=== PATIENT | male | born 1970 | race Caucasian/White ===

== ENCOUNTER 2020-02-07 10:39 | Outpatient (RCR) | payer OTHER, SELFPAY ==
--- NOTE | 2020-02-28 07:34 | MHC.PT.DC ---
[facility] [place] [facility] [place] [facility] [place] [facility] [address] Madhavi Mcbride [address] [phone] F: [phone] F: [phone] F: [phone] F: [phone] Physical Therapy Discharge Report Diagnosis: back pain. Date of Surgery: NA Date of Evaluation: 12/13/19 Date of Discharge: 02/28/20 Treatments to Date: 4 Cancellations to Date: No Shows to Date: 5 Discharge Status: Visit Non-compliance Discharge Summary: Pt reports intermittent numbness and tingling in his right thigh throughout the treatment session. He seems to have an extension directional preference. I educated him about avoiding recliner use. He said it is the only chair that will fit in his room. I asked if he could get rid of the chair and he said he will try. Pt reports compliance with use of towel roll, but uses recliner daily. He was not doing his exercises hourly as recommended. This was all reviewed with him. He stopped coming to his appointments and no showed the last 3 appointments. Electronically signed by: Qing Coleman DPT Please sign and return to therapist. Thank you for your referral.
== END 2020-02-28 07:35 | disposition other institution (70) ==
LOC: HO.PT 10:39
PROVIDERS: PCP Physician Assistant; Visit Provider Physician Assistant
DX: M54.5 Low back pain (principal)
CPT/HCPCS: 97110; 97112

== ENCOUNTER 2021-02-06 15:00 | Outpatient (REF) | payer OTHER, SELFPAY ==
[2021-02-06 15:17] LABS: MANUAL DIFF FLAG NO
[2021-02-06 15:56] LABS: Basophils Percent Auto 0.5 % (0-2); Eosinophils Absolute Auto 0.1 X10*3/uL (0.0-0.4); Eosinophils Percent Auto 1.5 % (0-4); Hematocrit 42.8 % (42-52); Hemoglobin 14.6 g/dl (14.0-18.0); Imm Gran Abs Auto 0.06 X10*3/uL (0.00-0.03); Imm Gran Pct Auto 0.8 % (0.0-0.4); Lymphocytes Absolute Auto 2.8 X10*3/uL (1.2-4.9); Lymphocytes Percent Auto 36.5 % (20-40); Mean Corpuscular HGB Conc 34.1 g/dl (31.0-36.0); Mean Corpuscular Volume 90.9 fL (80-98); Mean Platelet Volume 8.9 fL (9.4-12.4); Monocytes Absolute Auto 0.7 X10*3/uL (0.1-1.2); Monocytes Percent Auto 8.8 % (2-11); Neutrophils Percent Auto 51.9 % (45-73); Platelet Count 330 X10*3/uL (160-400); Red Blood Count 4.71 X10*6/uL (4.60-5.80); Red Cell Distribution Width 12.9 % (11.0-16.0); White Blood Count 7.8 X10*3/uL (4.8-10.8)
[2021-02-06 16:04] LABS: Estimated Average Glucose 97 mg/dL
[2021-02-06 16:20] LABS: Anion Gap 12 (12-20); Blood Urea Nitrogen 16 mg/dL (9-16); Calcium 9.1 mg/dL (8.4-10.2); Carbon Dioxide 25 mmol/L (22-29); Chloride 110 mmol/L (96-108); Cholesterol 245 mg/dL; Estimated Glomerular Filt Rate > 60; Glucose Random 77 mg/dL (60-115); HDL Cholesterol 44 mg/dL; LDL Cholesterol Calculated 146 mg/dl; Potassium 4.3 mmol/L (3.3-5.1); Sodium 143 mmol/L (135-145); Triglycerides 276 mg/dL
[2021-02-06 16:41] LABS: TSH reflex Free T4 2.72 uIU/mL (0.32-4.0)
== END 2021-02-06 15:01 | disposition home or self-care (01) ==
LOC: HO.LAB 15:00
PROVIDERS: PCP Physician Assistant; Visit Provider Physician Assistant
DX: Z13.1 Encounter for screening for diabetes mellitus (principal); E66.09 Other obesity due to excess calories; Z68.30 Body mass index [BMI] 30.0-30.9, adult
CPT/HCPCS: 36415; 80048; 80061; 83036; 84443; 85025

== ENCOUNTER 2022-12-04 10:46 | Outpatient (AMB) | payer OTHER, SELFPAY ==
[2022-12-04 11:00] VITALS: BP 124/88; PULSE 76; O2SAT 98; BMI 29.8
--- NOTE | 2022-12-04 11:00 | A.OFFPC_ITS ---
Vital Signs 12/04/22 11:00 Height 5 ft 11 in Weight 213 lb 8 oz BMI 29.8 BP 124/88 Blood Pressure Location Lt brachial Position Sitting Pulse 76 Pulse Source Pulse Oximeter Pulse Oximetry (%) 98 Oxygen Delivery Method Room Air Intake Visit Reasons: Discuss health concerns Allergies No Known Allergies Allergy (Verified 12/04/22 11:54) Medication List - Last Reconciled 12/04/22 by Jani Santizo PA-C acetaminophen ER 650 mg PO Q12H 30 days aripiprazole mg PO cyclobenzaprine 10 mg PO TID PRN gabapentin 600 mg PO DAILY meloxicam 15 mg PO DAILY nicotine 1 patch transdermal DAILY 30 days sertraline 100 mg PO DAILY Tobacco use date assessed: 12/04/22 Dental Screening Dental Screen Date: 12/04/22 Did you have a dental visit in the last 12 months?: No Did you have a dental problem in the last 6 months where you did not have access to dental care?: No Was dental information given to patient?: Patient has dentist HPI Discuss health concerns HPI Details Toribio is a 52 yo M here today for a f/u visit.. Pateint has a pmhx significant for chronic low back pain, Depression, Tobacco use. ? .. ? Schizophrenia ( paranoid):? Patient is seeing therapist and psychiatrist at [facility] , Taking Abilify and SSRI. Patient is going twice per month to [facility] mental health clinic. ? .. ? Current smoker: Reports cutting down somewhat, is still smoking 1/2 pack per day. He? Has nicotin patches at home. ? .. ? Lower back pain: reports he does have lower back issues for many years. ? He reports he is still having lumbar back stiffness and pain which causes him to sleep a lot. ? 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 Most recent lumbar MRI showing L5-S1 disc degeneration. No central nervous system impingement. Has gotten 2 injections in his lumbar spine from [facility] with only temporary relief. ?Has done PT in the past which only helped temporarily though? had transportation issues.?? PFSH Surgical History No pertinent past surgical history Family History Father Asthma Mother Chronic mental illness Stroke Diabetes Mental health disorder Maternal Grandfather Gastric cancer Social History Housing: House Alcohol intake: current Alcohol intake frequency: a few times a month Patient Tobacco Use Status: Current everyday Tobacco user Tobacco use type: Cigarette Cigarette Packs Per Day: 0.5 Cigarettes Per Day: 2 e-Cigarette/Vaping Use: Never Used Second Hand Smoke Exposure: Yes service: No Current occupational status: disabled Cognitive needs: No Hearing needs: No Vision needs: No Questionnaire PHQ-9 Over the last 2 weeks, how often have you been bothered by any of the following problems? 1. Little interest or pleasure in doing things: several days 2. Feeling down, depressed, or hopeless: more than half the days 3. Trouble falling or staying asleep, or sleeping too much: several days 4. Feeling tired or having little energy: several days 5. Poor appetite or overeating: not at all 6. Feeling bad about yourself - or that you are a failure or have let yourself or your family down: not at all 7. Trouble concentrating on things, such as reading the newspaper or watching television: more than half the days 8. Moving or speaking so slowly that other people could have noticed. Or the opposite - being so fidgety or restless that you have been moving around a lot more than usual: more than half the days 9. Thoughts that you would be better off or of hurting yourself in some way: not at all Total score: 9 Depression Screening Interpretation: Positive 87359 - PHQ-9 Billing: Yes Source: Developed by Drs. Lloyd Al, Binta Webb, Myles Lee and colleagues, with an educational leigh ann from [employer]. Thrive Questionnaire Date Thrive assessed: 12/04/22 I am a: Patient What is your living situation today?: I have a steady place to live Within the past 12 months, did the food you bought not last and you didn't have the money to get more?: Never true Within the past 12 months, did you worry whether your food would run out before you got money to buy more?: Never true Do you have trouble paying for medicines?: No Do you have trouble getting transportation to medical appointments?: No Do you have trouble paying your heating and electricity bill?: Yes Do you have trouble taking care of your child, family member or friend?: No Do you have trouble with day-to-day activities such as bathing, preparing meals, shopping, managing finances, etc.?: No Are you currently unemployed and looking for a job?: No Are you interested in more education?: No Currently or been in a relationship where the following occur: no concerns reported AUDIT C Alcohol Use Questionnaire (AUDIT-C) 1. How often do you have a drink containing alcohol?: Monthly or less 2. How many drinks containing alcohol do you have on a typical day when you are drinking?: 1 or 2 3. How often do you have six or more drinks on one occasion?: Never Total Score: 1 MARY-7 AMB Questionnaire MARY-7 Date MARY - 7 assessed: 12/04/22 Feeling nervous, anxious, or on edge: 2 = More than half the days Not being able to stop or control worryin = Nearly every day Worrying too much about different things: 3 = Nearly every day Trouble relaxin = Several days Being so restless that it is hard to sit still: 1 = Several days Becoming easily annoyed or irritable: 0 = Not at all Feeling afraid as if something awful might happen: 2 = More than half the days Total MARY-7 score (0-4 normal; 5-9 mild; 10-14 moderate; 15-21 severe): 12 Source: Developed by Drs. Lloyd Al, Binta Webb, Myles Lee and colleagues, with an educational leigh ann from [employer]. MARY-7 Assessment Billing MARY-7 Assessment Tool: MARY-7 Assessment 87094 Review of Systems Const Denies headache(s) Eyes Denies loss of vision ENT Denies vertigo, Denies dizziness, Denies headache(s) and Denies sore throat Card Denies chest pain, Denies leg edema and Denies lightheadedness Resp Denies cough, Denies hemoptysis and Denies wheezing GI Denies abdominal pain, Denies melena, Denies constipation, Denies diarrhea and Denies vomiting Denies dysuria, Denies urinary frequency and Denies urinary urgency Musc Denies arthralgias, Denies joint swelling, Denies numbness and Denies tingling Neuro Denies Abnormal speech present, Denies behavioral changes, Denies vertigo, Denies dizziness, Denies headache(s), Denies loss of vision, Denies memory loss, Denies numbness and Denies tingling Psych Denies anxiety, Denies behavioral changes, Denies depression, Denies memory loss and Denies panic attacks Nawaf/Lymph Denies easy bleeding and Denies easy bruising Aller/Immun Denies wheezing Physical exam (Primary Care) Vital Signs: Last Vital Signs Pulse 76 12/04/22 11:00 BP 124/88 12/04/22 11:00 Pulse Ox 98 12/04/22 11:00 Oxygen Delivery Method Room Air 12/04/22 11:00 BMI result Body Mass Index 29.8 Tobacco/Smoking Status: Tobacco use Status Tobacco use date assessed 12/04/22 12/04/22 11:01 Patient Tobacco Use Status Current everyday Tobacco 12/04/22 11:01 Tobacco use type Cigarette 12/04/22 11:01 e-Cigarette/Vaping Use Never Used 12/04/22 11:01 Are you ready to quit: Yes Relapse Prevention: weight gain after smoking is common PHQ-9: PHQ-9 Score PHQ-9: Total score 9 12/04/22 11:55 Depression Screening Interpretation: Positive Thrive Assessment: Date of Thrive Assessment Date Thrive assessed 12/04/22 12/04/22 11:39 Currently or been in a relationship where the following occur: no concerns reported Const General: healthy appearing, no acute distress, alert and awake Nutritional Appearance: well nourished Orientation/consciousness: oriented to person, oriented to place and oriented to time [facility] Ears: TM's normal bilaterally General nose exam: Normal nasal mucous membranes and turbinates present Eyes Conjunctivae: conjunctivae normal Sclerae: sclerae normal Pupils: Equal, round and reactive pupils present Neck Neck: Yes no lymphadenopathy and Yes no JVD Thyroid: Thyroid normal Carotids: no bruits Resp Effort & Inspection: normal respiratory effort and not tachypneic Auscultation: no crackles, no rales, no rhonchi and no wheezes Cardio Rate: regular rate Rhythm: regular rhythm Heart sounds: no murmurs and normal S1 and S2 GI Palpation (GI): Soft to palpation, nontender, no hepatomegaly and no splenomegaly Auscultation: normal bowel sounds Skin General skin exam: no rashes or lesions noted and dry skin Neuro General: oriented to person, oriented to place and oriented to time Cranial nerves: Yes Equal, round and reactive pupils present Speech: No Abnormal speech present Gait exam (Neuro): Normal gait present Motor exam (neuro): no tremor noted Extrem Right upper extremity: full ROM Left upper extremity: full ROM Right lower extremity: full ROM; no edema Left lower extremity: full ROM; no edema Psych Mental Status: mental status grossly normal Speech and movement: Normal speech and movement present Affect: normal affect Attitude: cooperative Thought process: Normal thought process present Assessment and Plan Assessment & Plan (1) Lumbar disc disease with radiculopathy: Code(s): M51.16 - Intervertebral disc disorders with radiculopathy, lumbar region Plan: As per HPI patient continues to have chronic lower lumbar spine pain with intermittent radiculopathy down right lower extremity. He has gotten to cortisone injections in his lumbar spine with only temporary relief. Has been using NSAIDs and muscle relaxers with only minimal relief. Has done 2 rounds of physical therapy which has not been helpful. Will refer to neurosurgeon for ev aluation on possible surgical fix of his degenerated disc. (2) Smoker: Code(s): F17.200 - Nicotine dependence, unspecified, uncomplicated Plan: He has cut down his smoking to only 2 cigarettes per day with morning coffee. Does have nicotine patches available to him . He plans on quitting smoking in the next year. (3) Schizo-affective schizophrenia: Code(s): F25.9 - Schizoaffective disorder, unspecified Plan: Patient continues to follow a mental health therapist and a psychiatrist who manages his mental health medications. He feels stable from a mental health point of view. Still suffers from time to time with anxiety and depression. (4) HLD (hyperlipidemia): Code(s): E78.5 - Hyperlipidemia, unspecified Qualifiers: Hyperlipidemia type: mixed hyperlipidemia Qualified Code(s): E78.2 - Mixed hyperlipidemia Plan: Patient's most recent fasting lipid panel showing very elevated total cholesterol and LDL. Has been working on lifestyle modifications on reducing high cholesterol foods in his diet. Will recheck fasting lipids and if LDL above 190 will consider statin therapy. (5) Colon cancer screening: Code(s): Z12.11 - Encounter for screening for malignant neoplasm of colon Plan: Patient willing to do colonoscopy (6) MDD (major depressive disorder), recurrent episode, moderate: Code(s): F33.1 - Major depressive disorder, recurrent, moderate Plan: As above patient's PHQ-9 score positive for mild depression which has been existing condition for him. Again speaks with a mental therapist and a psychiatrist on a regular basis. (7) MARY (generalized anxiety disorder): Code(s): F41.1 - Generalized anxiety disorder Plan: Patient's MARY-7 score positive for mild anxiety which has been existing condition for him. Orders: Orders Comprehensive [place]. Panel Fast Today E78.2 - Mixed hyperlipidemia Lipid Panel Today E78.2 - Mixed hyperlipidemia Prostate Specific Antigen Scr Today E78.2 - Mixed hyperlipidemia, Z12.5 - Encounter for screening for malignant neoplasm of prostate Complete Blood Count no Diff Today E78.2 - Mixed hyperlipidemia Referrals Neurosurgery Referral M51.16 - Intervertebral disc disorders with radiculopathy, lumbar region Gastroenterology Referral Z12.11 - Encounter for screening for malignant neoplasm of colon Medications: New multivitamin 1 tab PO DAILY 90 days 90 tabs 3RF E66.09 - Other obesity due to excess calories, Z68.30 - Body mass index [BMI] 30.0-30.9, adult Coding Level of Care Code Est Pt Level 4 (80574) Diagnoses Lumbar disc disease with radiculopathy M51.16 Smoker F17.200 Schizo-affective schizophrenia F25.9 HLD (hyperlipidemia) E78.2 Hyperlipidemia type: mixed hyperlipidemia Colon cancer screening Z12.11 MDD (major depressive disorder), recurrent episode, moderate F33.1 MARY (generalized anxiety disorder) F41.1 Additional Codes MARY-7 Assessment Billing - MARY-7 Assessment Tool: MARY-7 Assessment [id number] ([id number])
== END 2022-12-04 12:11 | disposition home or self-care (01) ==
PROVIDERS: PCP Physician Assistant; Visit Provider Physician Assistant
DX: M51.16 Intervertebral disc disorders with radiculopathy, lumbar region (principal); F17.210 Nicotine dependence, cigarettes, uncomplicated; F33.1 Major depressive disorder, recurrent, moderate; F25.9 Schizoaffective disorder, unspecified; E78.2 Mixed hyperlipidemia; Z12.11 Encounter for screening for malignant neoplasm of colon; F41.1 Generalized anxiety disorder
CPT/HCPCS: 99214

== ENCOUNTER 2023-01-15 09:56 | Outpatient (AMB) | payer OTHER, SELFPAY ==
--- NOTE | 2023-01-15 11:00 | HO.SPINEOV ---
Intake Intake Visit Reasons: intervertebral disc disorder Intake Note: Mr. Jerry is here today c/o low back pain. MRI done @ [facility]. [employer] Technician Required: No Allergies No Known Allergies Allergy (Verified 12/04/22 11:54) Assessment & Plan Assessment & Plan (1) Lumbar spine pain: Code(s): M54.5 - Low back pain Plan Dear colleague Thank you for referring Toribio Jerry to the office today with a chief complaint of chronic low back pain. HPI: This 52-year-old male suffer from chronic back pain for which he is on disability. He states that the pain is on the right side of his back and can radiate to the outside of his thigh. He denies radiation down his leg. The pain is constant and interferes with his daily activities and sleeping. Denies numbness or weakness. He tried physical therapy and 2 epidural steroid injections without success. PMH: Depression Social history: Smokes Medications: Zoloft, gabapentin, Abilify, meloxicam, cyclobenzaprine Allergies: NKDA Physical Exam: Pleasant male. Comes out a chair without difficulties. Flexing forward is more painful than extension. SI joint provocative test are mildly positive. There is pain on palpation on the right side of his back. No neurological deficits for motor, sensation reflexes. Gait is undisturbed. Radiological Studies: MRI done at [facility] on 09/19/2022 shows mild degenerative disc disease L5-S1 with a central disc bulge. Impression/Plan: This 52-year-old male suffer from chronic low back pain for more than 25 years with mild degenerative changes on the lumbar MRI. Explained to him that this is most likely not the cause of his back pain and he is not a surgical candidate. I would like to firm to Pain Management to assess if the pain is originating from either facet joints or the right SI joint. Thank you for allowing me to participate in your patients care. total time spent was 40 minutes in counseling ,coordination of plan, personal review of imaging, and subsequent plan Alexander Jackson MD, PhD Spine Fellowship Trained Neurosurgeon Director, [facility] Orders: Referrals Pain Management Referral M54.5 - Low back pain Coding Level of Care Code New Pt Level 3 (11993) Diagnoses Lumbar spine pain M54.5
== END 2023-01-15 11:33 | disposition home or self-care (01) ==
PROVIDERS: PCP Physician Assistant; Referring Provider Physician Assistant; Visit Provider Neurological Surgery
DX: M54.50 Low back pain, unspecified (principal)
CPT/HCPCS: 99203

== ENCOUNTER → 2023-01-15 09:56 | Outpatient (BNVA) | payer OTHER, SELFPAY | PROVIDERS: PCP Physician Assistant; Visit Provider Neurological Surgery ==

== ENCOUNTER → 2023-04-08 10:56 | Outpatient (BNVA) | payer OTHER, SELFPAY | PROVIDERS: PCP Physician Assistant; Visit Provider Physician Assistant ==

== ENCOUNTER 2023-04-28 11:13 | Outpatient (AMB) | payer OTHER, SELFPAY ==
[2023-04-28 11:17] VITALS: BP 132/88; PULSE 80; RESP 17; BMI 31.1
--- NOTE | 2023-04-28 11:17 | MHC.PC.OV ---
Vital Signs 04/28/23 11:17 Height 5 ft 11 in Weight 223 lb 4 oz BMI 31.1 BP 132/88 Blood Pressure Location Lt brachial Position Sitting Respiration 17 Pulse 80 Pulse Source Palpation Intake Visit Reasons: Annual PE Intake Note: Patient is here today for a physical. Media Professional Required: No Accompanied by: Self / Same As Patient Allergies No Known Allergies Allergy (Verified 04/28/23 11:34) Medication List - Last Reconciled 04/28/23 by Jani Santizo PA-C acetaminophen ER 650 mg PO Q12H 30 days aripiprazole mg PO bisacodyl (Dulcolax (bisacodyl)) 20 mg (4 x 5 mg) PO ONCE 1 day cyclobenzaprine 10 mg PO TID PRN gabapentin 600 mg PO DAILY meloxicam 15 mg PO DAILY multivitamin with folic acid 400 mcg (Daily-Samia (with folic acid)) tabs PO polyethylene glycol 3350 (Miralax) 238 grams PO ONCE PRN 1 day sertraline 100 mg PO DAILY Tobacco use date assessed: 04/28/23 Dental Screening Dental Screen Date: 04/28/23 Did you have a dental visit in the last 12 months?: No Did you have a dental problem in the last 6 months where you did not have access to dental care?: No Was dental information given to patient?: Patient has dentist HPI Annual PE HPI Details Toribio is a 52 yo M here today for a routine annual physical.. Pateint has a pmhx significant for chronic low back pain, Depression, Tobacco use. ? .. ? Schizophrenia ( paranoid):? Patient is seeing therapist and psychiatrist at [facility] , Taking Abilify and SSRI. Patient is going twice per month to [facility] mental health clinic. ? .. ? Current smoker: Reports cutting down somewhat, is still smoking 1-2 cigs per day. He? Has nicotin patches at home. ? .. ? Lower back pain: reports he does have lower back issues for many years. ? He reports he is still having lumbar back stiffness and pain which causes him to sleep a lot. ? 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 Most recent lumbar MRI showing L5-S1 disc degeneration. No central nervous system impingement. Has gotten 2 injections in his lumbar spine from [facility] with only temporary relief. ?Has done PT in the past which only helped temporarily though? had transportation issues.?? Colon cancer screening: has upcoming colonoscopy in 07/2023 Vaccines: Up-to-date with pneumonia vaccine, COVID vaccine, flu vaccine and tetanus vaccine. Considering shingles PFSH Surgical History No pertinent past surgical history Family History Father Asthma Mother Chronic mental illness Stroke Diabetes Mental health disorder Maternal Grandfather Gastric cancer Social History (Updated 04/28/23 @ 11:40 by Jani Santizo PA-C) Housing: House Alcohol intake: current Alcohol intake frequency: a few times a month Patient Tobacco Use Status: Current everyday Tobacco user Tobacco use type: Cigarette Cigarette Packs Per Day: 0.5 Cigarettes Per Day: 2 Years Smoked: 22 e-Cigarette/Vaping Use: Never Used Second Hand Smoke Exposure: Yes Substance Use Type: Marijuana service: No Current occupational status: disabled Cognitive needs: No Hearing needs: No Vision needs: No Questionnaire PHQ-9 Over the last 2 weeks, how often have you been bothered by any of the following problems? 1. Little interest or pleasure in doing things: more than half the days 2. Feeling down, depressed, or hopeless: several days 3. Trouble falling or staying asleep, or sleeping too much: several days 4. Feeling tired or having little energy: several days 5. Poor appetite or overeating: more than half the days 6. Feeling bad about yourself - or that you are a failure or have let yourself or your family down: more than half the days 7. Trouble concentrating on things, such as reading the newspaper or watching television: several days 8. Moving or speaking so slowly that other people could have noticed. Or the opposite - being so fidgety or restless that you have been moving around a lot more than usual: more than half the days 9. Thoughts that you would be better off or of hurting yourself in some way: several days Total score: 13 Depression Screening Interpretation: Positive Depression Screening Follow-up: Existing condition and In treatment Depression Screening Done: Yes 13395 - PHQ-9 Billing: Yes Source: Developed by Drs. Lloyd Al, Binta Webb, Myles Lee and colleagues, with an educational leigh ann from [employer]. Thrive Questionnaire Date Thrive assessed: 04/28/23 I am a: Patient What is your living situation today?: I have a steady place to live Within the past 12 months, did the food you bought not last and you didn't have the money to get more?: Never true Within the past 12 months, did you worry whether your food would run out before you got money to buy more?: Never true Do you have trouble paying for medicines?: No Do you have trouble getting transportation to medical appointments?: No Do you have trouble paying your heating and electricity bill?: No Do you have trouble taking care of your child, family member or friend?: No Do you have trouble with day-to-day activities such as bathing, preparing meals, shopping, managing finances, etc.?: No Are you currently unemployed and looking for a job?: No Are you interested in more education?: No Please select the resources that you would like help with: None Currently or been in a relationship where the following occur: no concerns reported AUDIT C Alcohol Use Questionnaire (AUDIT-C) 1. How often do you have a drink containing alcohol?: Monthly or less 2. How many drinks containing alcohol do you have on a typical day when you are drinking?: 3 or 4 3. How often do you have six or more drinks on one occasion?: Less than monthly Total Score: 3 MARY-7 AMB Questionnaire MARY-7 Date MARY - 7 assessed: 04/28/23 Feeling nervous, anxious, or on edge: 0 = Not at all Not being able to stop or control worryin = Not at all Worrying too much about different things: 0 = Not at all Trouble relaxin = Not at all Being so restless that it is hard to sit still: 0 = Not at all Becoming easily annoyed or irritable: 0 = Not at all Feeling afraid as if something awful might happen: 0 = Not at all Total MARY-7 score (0-4 normal; 5-9 mild; 10-14 moderate; 15-21 severe): 0 Source: Developed by Binta CookW. Jon, Myles Lee and colleagues, with an educational leigh ann from [employer]. MARY-7 Assessment Billing MARY-7 Assessment Tool: MARY-7 Assessment 16022 Review of Systems Const Denies body aches, Denies chills, Denies excessive sweating, Denies fatigue, Denies fever(s) and Denies headache(s) Eyes Denies blurry vision ENT Denies dysphagia, Denies vertigo, Denies dizziness, Denies headache(s), Denies hearing loss and Denies tinnitus Card Denies chest pain, Denies chest pain with activity, Denies syncope, Denies irregular heart rhythm and Denies dyspnea Resp Denies chest congestion, Denies cough, Denies hemoptysis, Denies dyspnea and Denies wheezing GI Denies abdominal pain, Denies melena, Denies hematochezia, Denies coffee ground emesis, Denies dysphagia, Denies diarrhea, Denies nausea and Denies vomiting Denies difficulty urinating, Denies dysuria, Denies urinary frequency, Denies urinary hesitancy and Denies urinary urgency Musc Denies arthralgias, Denies limited range of motion, Denies muscle cramps and Denies muscle weakness Skin/Breast Denies rash and Denies skin ulcer Neuro Denies Abnormal speech present, Denies confusion, Denies vertigo, Denies dizziness, Denies syncope, Denies headache(s), Denies memory loss and Denies seizure-like activity Psych Denies anxiety, Denies confusion, Denies depression, Denies memory loss, Denies panic attacks and Denies paranoia Endo Denies excessive sweating, Denies fatigue, Denies flushing, Denies polydipsia and Denies polyuria Aller/Immun Denies wheezing Physical exam (Primary Care) Vital Signs: Last Vital Signs Pulse 80 04/28/23 11:17 Resp 17 04/28/23 11:17 BP 132/88 04/28/23 11:17 BMI result Body Mass Index 31.1 BMI Assessment/Plan discussion: High Tobacco/Smoking Status: Tobacco use Status Tobacco use date assessed 04/28/23 04/28/23 11:18 Patient Tobacco Use Status Current everyday Tobacco 04/28/23 11:18 Tobacco use type Cigarette 04/28/23 11:18 e-Cigarette/Vaping Use Never Used 04/28/23 11:18 Are you ready to quit: No Tobacco cessation counseling provided: Yes Items discussed: Nicotine replacement and QuitWorks Relapse Prevention: discussed the importance of a supportive environment, discussed negative mood or depression after quitting, weight gain after smoking is common and discussed dietary, exercise and/or lifestyle changes Number of minutes spent counselin CPT code: 36883 - 4-10 Minutes PHQ-9: PHQ-9 Score PHQ-9: Total score 13 04/28/23 11:33 Depression Screening Interpretation: Positive Depression Screening Follow-up: Existing condition and In treatment Thrive Assessment: Date of Thrive Assessment Date Thrive assessed 04/28/23 04/28/23 11:31 Currently or been in a relationship where the following occur: no concerns reported Const General: cooperative, comfortable, no acute distress, alert and awake; No confusion Orientation/consciousness: oriented to person, oriented to place, patient oriented x3 and No confusion HENMT Head: Yes normocephalic Ears: external ears normal and TM's normal bilaterally Face and sinus: No sinus tenderness Mouth: Normal oral and palatal mucosa present and tongue normal Teeth and gingiva: dentition normal and gingiva normal Throat: Yes posterior oropharynx normal, Yes tonsils normal and Yes uvula midline Eyes Conjunctivae: conjunctivae normal Sclerae: sclerae normal Pupils: Equal, round and reactive pupils present EOM: EOMs intact bilaterally Direct Ophthalmoscopy: No no photophobia Neck Neck: Yes no lymphadenopathy, No tender and Yes no JVD Thyroid: Thyroid normal Carotids: no bruits Chest Chest palpation & inspection: no tenderness Resp Effort & Inspection: normal respiratory effort, no audible wheezes, not labored and no stridor Auscultation: no crackles, no rales, no rhonchi and no wheezes Cardio Jugular venous distension: no JVD Rate: regular rate, not bradycardic and not tachycardic Rhythm: regular rhythm Bruits: no carotid bruits Peripheral pulses: Peripheral pulses 2+ throughout GI Inspection: Yes normal to inspection, No abdominal wall ecchymosis and No visible herniation Palpation (GI): Soft to palpation, nontender, no guarding, not rigid and No hepatosplenomegaly present Auscultation: normoactive bowel sounds General: Yes no CVA tenderness Back/Spine/Pelvis Back: no CVA tenderness and No back tenderness Cervical Spine: cervical ROM normal Thoracic/Lumbar Spine: thoracic and lumbar spine normal to inspection, straight leg raise negative bilaterally, No thoraco-lumbar ROM limited and No lumbar spinal tenderness Skin Lesions: no lesions Rashes: no rashes Wounds: no wounds Neuro General: oriented to person, oriented to place, patient oriented x3, CN's II-XI intact bilaterally and No confusion Cranial nerves: Yes Equal, round and reactive pupils present and Yes Normal accommodation reflex present Cognition (Neuro): normal cognition Speech: No Abnormal speech present Gait exam (Neuro): Normal gait present Motor exam (neuro): 5/5 motor strength present throughout Extrem Right upper extremity: full ROM; no cyanosis Left upper extremity: full ROM; no cyanosis Right lower extremity: no edema Left lower extremity: no edema Psych Appearance: grossly normal Mental Status: mental status grossly normal Affect: normal affect Attitude: cooperative Thought process: Normal thought process present Office Procedures Flu Questionnaire Does the patient have a severe egg allergy?: No Does the patient have severe life threatening allergies?: No Does the patient have a fever or illness today?: No Has the patient ever had Guillain-[place] Syndrome?: No Has the patient ever had any past reaction to a flu shot?: No Immunizations flu vacc [id number] 6mos up(PF) 60 mcg(15 mcgx4)/0.5 mL IM syringe Performing Provider: Jani Santizo PA-C [facility] Administered by: RAMESH Busby on 04/28/23 11:33 Dose Route Admin Location Dispensed Lot Number Expiration Date NDC Patients Transporter 0.5 mL IM Left Deltoid 0.5 mL [id number] 10/19/23 [id number] [employer] VIS Given Date VIS Provided VIS Publication Date 04/28/23 Single Vaccine 20 Eligibility Eligibility Date Funding Source Not [facility] Eligible 04/28/23 Private Assessment and Plan Assessment & Plan (1) Annual physical exam: Code(s): Z00.00 - Encounter for general adult medical examination without abnormal findings (2) Lumbar disc disease with radiculopathy: Code(s): M51.16 - Intervertebral disc disorders with radiculopathy, lumbar region Plan: As per HPI patient continues to have chronic lower lumbar spine pain with intermittent radiculopathy down right lower extremity. He has gotten to cortisone injections in his lumbar spine with only temporary relief. Has been using NSAIDs and muscle relaxers with only minimal relief. Has done 2 rounds of physical therapy which has not been helpful. Has been seen by internet specialist in the past and has gotten injections. He is interested in perhaps getting another injection. (3) Smoker: Code(s): F17.200 - Nicotine dependence, unspecified, uncomplicated Plan: He has cut down his smoking to only 2 cigarettes per day with morning coffee. Does have nicotine patches available to him . He plans on quitting smoking this year (4) Schizo-affective schizophrenia: Code(s): F25.9 - Schizoaffective disorder, unspecified Plan: Patient continues to follow a mental health therapist and a psychiatrist who manages his mental health medications. He feels stable from a mental health point of view. Still suffers from time to time with anxiety and depression. (5) HLD (hyperlipidemia): Code(s): E78.5 - Hyperlipidemia, unspecified Qualifiers: Hyperlipidemia type: mixed hyperlipidemia Qualified Code(s): E78.2 - Mixed hyperlipidemia Plan: Patient's most recent fasting lipid panel showing very elevated total cholesterol and LDL. Has been working on lifestyle modifications on reducing high cholesterol foods in his diet. Will recheck fasting lipids and if LDL above 190 will consider statin therapy. (6) Colon cancer screening: Comment: Ti [facility]ett referred index screening colonoscopy no GI complaints, no known family history of GI cancer Discussed procedure, rare risks, need for escorted due to anesthesia Code(s): Z12.11 - Encounter for screening for malignant neoplasm of colon Plan: has upcoming appt July 2023 (7) MDD (major depressive disorder), recurrent episode, moderate: Code(s): F33.1 - Major depressive disorder, recurrent, moderate Plan: As above patient's PHQ-9 score positive for mild depression which has been existing condition for him. Again speaks with a mental therapist and a psychiatrist on a regular basis. (8) MARY (generalized anxiety disorder): Code(s): F41.1 - Generalized anxiety disorder Plan: Patient's diet he has been stable current SSRI therapy. (9) Obese: Code(s): E66.9 - Obesity, unspecified Qualifiers: Obesity type: due to excess calories Obesity classification: adult class 1 (BMI 30 - 34.9) Serious obesity comorbidity presence: without serious comorbidity Body mass index: BMI 31.0-31.9 Qualified Code(s): E66.09 - Other obesity due to excess calories; Z68.31 - Body mass index [BMI] 31.0-31.9, adult Plan: Patient does understand his BMI is over 30 will work on being more physically active and adapting to better eating habits to reduce his weight Orders: Orders Influenza [id number] Immunization Today Z23 - Encounter for immunization Medications: Changed From gabapentin 600 mg PO DAILY M54.5 - Low back pain To gabapentin 600 mg PO DAILY 90 days 90 tabs 2RF M54.5 - Low back pain Refilled cyclobenzaprine 10 mg PO TID PRN 30 caps 6RF for muscle spasm M54.5 - Low back pain meloxicam 15 mg PO DAILY 30 tabs 6RF M54.5 - Low back pain Coding Level of Care Code Est Pt Prev Care 40-64y(05896) Diagnoses Annual physical exam Z00.00 Lumbar disc disease with radiculopathy M51.16 Smoker F17.200 Schizo-affective schizophrenia F25.9 Mixed hyperlipidemia E78.2 Hyperlipidemia type: mixed hyperlipidemia Colon cancer screening Z12.11 MDD (major depressive disorder), recurrent episode, moderate F33.1 MARY (generalized anxiety disorder) F41.1 Class 1 obesity due to excess calories without serious comorbidity with body mass index (BMI) of 31.0 to 31.9 in adult E66.09; Z68.31 Obesity type: due to excess calories Obesity classification: adult class 1 (BMI 30 - 34.9) Serious obesity comorbidity presence: without serious comorbidity Body mass index: BMI 31.0-31.9 Additional Codes MARY-7 Assessment Billing - MARY-7 Assessment Tool: MARY-7 Assessment 73795 ([id number]) Vital Signs *Quality* - CPT code: 28753 - 4-10 Minutes ([id number])
== END 2023-04-28 12:02 | disposition home or self-care (01) ==
PROVIDERS: PCP Physician Assistant; Visit Provider Physician Assistant
DX: Z00.00 Encounter for general adult medical examination without abnormal findings (principal); F25.9 Schizoaffective disorder, unspecified; F33.1 Major depressive disorder, recurrent, moderate; Z23 Encounter for immunization; M51.16 Intervertebral disc disorders with radiculopathy, lumbar region; F17.210 Nicotine dependence, cigarettes, uncomplicated; E78.2 Mixed hyperlipidemia; Z12.11 Encounter for screening for malignant neoplasm of colon; F41.1 Generalized anxiety disorder; E66.09 Other obesity due to excess calories; Z68.31 Body mass index [BMI] 31.0-31.9, adult
CPT/HCPCS: 90471; 90686; 96127; 99396

== ENCOUNTER 2024-01-29 15:28 | Outpatient (AMB) | payer OTHER, SELFPAY ==
[2024-01-29 15:31] VITALS: BP 160/92; PULSE 104; O2SAT 97; BMI 29.4
--- NOTE | 2024-01-29 15:31 | MHC.PC.OV ---
Vital Signs 01/29/24 15:31 Height 5 ft 11 in Weight 211 lb BMI 29.4 BP 160/92 H Blood Pressure Location Lt brachial Position Sitting Pulse 104 H Pulse Source Pulse Oximeter Pulse Oximetry (%) 97 Oxygen Delivery Method Room Air Intake Visit Reasons: f/u MDD/ back issue/ smoking cessation Outside Parts Sales Required: No Accompanied by: Self / Same As Patient Allergies No Known Allergies Allergy (Verified 01/29/24 15:45) Medication List - Last Reconciled 01/29/24 by Jani Santizo PA-C acetaminophen ER 650 mg PO Q12H 30 days aripiprazole 30 mg PO DAILY bisacodyl (Dulcolax (bisacodyl)) 20 mg (4 x 5 mg) PO ONCE 1 day cyclobenzaprine 10 mg PO TID PRN gabapentin 600 mg PO DAILY 90 days meloxicam 15 mg PO DAILY multivitamin with folic acid 400 mcg (Daily-Samia (with folic acid)) 1 tab PO DAILY polyethylene glycol 3350 (Miralax) 238 grams PO ONCE PRN 1 day sertraline 100 mg PO DAILY Tobacco use date assessed: 04/28/23 Dental Screening Dental Screen Date: 04/28/23 HPI f/u MDD/ back issue/ smoking cessation HPI Details Toribio is a 53 yo M here today for a follow-up visit. Pateint has a pmhx significant for chronic low back pain, Depression, schizophrenia, Tobacco use. ? .. ? Schizophrenia ( paranoid):? Patient is seeing therapist and psychiatrist at [facility] , Taking Abilify and SSRI. Patient is going twice per month to [facility] mental health clinic. ? .. ? Current smoker: Reports cutting down on cigarette smoking, is still smoking 1-2 cigs per day. He? Has nicotin patches at home. .. Hyperlipidemia: Most recent lipid panel done in 2020 did show an elevated total cholesterol. He is willing to do another fasting lipid panel and consider cholesterol medication. ? .. ? Lower back pain: reports he does have lower back issues for many years. ? He reports he is still having lumbar back stiffness and pain which causes him to sleep a lot. ? 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 Most recent lumbar MRI showing L5-S1 disc degeneration. No central nervous system impingement. Has gotten 2 injections in his lumbar spine from [facility] with only temporary relief. ?Has done PT in the past which only helped temporarily though? had transportation issues to get to the appointments. [facility] Medical History (Updated 01/29/24 @ 15:50 by Jani Santizo PA-C) Schizo affective schizophrenia Back pain HLD (hyperlipidemia) Anxiety Depression Surgical History No pertinent past surgical history Family History Father Asthma Mother Chronic mental illness Stroke Diabetes Mental health disorder Maternal Grandfather Gastric cancer Social History Housing: House Alcohol intake: current Alcohol intake frequency: a few times a month Patient Tobacco Use Status: Current everyday Tobacco user Tobacco use type: Cigarette Cigarette Packs Per Day: 0.5 Cigarettes Per Day: 2 Years Smoked: 22 e-Cigarette/Vaping Use: Never Used Second Hand Smoke Exposure: Yes Substance Use Type: Marijuana service: No Current occupational status: disabled Cognitive needs: No Hearing needs: No Vision needs: No Questionnaire Thrive Questionnaire Date Thrive assessed: 04/28/23 Are you currently unemployed and looking for a job?: Yes MARY-7 AMB Questionnaire MARY-7 Date MARY - 7 assessed: 04/28/23 Source: Developed by Drs. Lloyd Al, Binta Webb, Myles Lee and colleagues, with an educational leigh ann from [employer]. Review of Systems Const Denies headache(s) Eyes Denies loss of vision ENT Denies vertigo, Denies dizziness, Denies headache(s) and Denies sore throat Card Denies chest pain, Denies leg edema and Denies lightheadedness Resp Denies cough, Denies hemoptysis and Denies wheezing GI Denies abdominal pain, Denies melena, Denies constipation, Denies diarrhea and Denies vomiting Denies dysuria, Denies urinary frequency and Denies urinary urgency Musc Denies arthralgias, Denies joint swelling, Denies numbness and Denies tingling Neuro Denies Abnormal speech present, Denies behavioral changes, Denies vertigo, Denies dizziness, Denies headache(s), Denies loss of vision, Denies memory loss, Denies numbness and Denies tingling Psych Denies anxiety, Denies behavioral changes, Denies depression, Denies memory loss and Denies panic attacks Nawaf/Lymph Denies easy bleeding and Denies easy bruising Aller/Immun Denies wheezing Physical exam (Primary Care) Vital Signs: Last Vital Signs Pulse 104 H 01/29/24 15:31 BP 160/92 H 01/29/24 15:31 Pulse Ox 97 01/29/24 15:31 Oxygen Delivery Method Room Air 01/29/24 15:31 BMI result Body Mass Index 29.4 Tobacco/Smoking Status: Tobacco use Status Tobacco use date assessed 04/28/23 01/29/24 15:31 Patient Tobacco Use Status Current everyday Tobacco 01/29/24 15:31 Tobacco use type Cigarette 01/29/24 15:31 e-Cigarette/Vaping Use Never Used 01/29/24 15:31 Are you ready to quit: No Tobacco cessation counseling provided: Yes Items discussed: Nicotine replacement Relapse Prevention: discussed the importance of a supportive environment, discussed negative mood or depression after quitting, weight gain after smoking is common and discussed dietary, exercise and/or lifestyle changes Number of minutes spent counselin CPT code: 80864 - 4-10 Minutes Thrive Assessment: Date of Thrive Assessment Date Thrive assessed 04/28/23 01/29/24 15:31 Const General: healthy appearing, no acute distress, alert and awake Nutritional Appearance: well nourished Orientation/consciousness: oriented to person, oriented to place and oriented to time HENMT Ears: TM's normal bilaterally General nose exam: Normal nasal mucous membranes and turbinates present Eyes Conjunctivae: conjunctivae normal Sclerae: sclerae normal Pupils: Equal, round and reactive pupils present Neck Neck: Yes no lymphadenopathy and Yes no JVD Thyroid: Thyroid normal Carotids: no bruits Resp Effort & Inspection: normal respiratory effort and not tachypneic Auscultation: no crackles, no rales, no rhonchi and no wheezes Cardio Rate: regular rate Rhythm: regular rhythm Heart sounds: no murmurs and normal S1 and S2 GI Palpation (GI): Soft to palpation, nontender, no hepatomegaly and no splenomegaly Auscultation: normal bowel sounds Skin General skin exam: no rashes or lesions noted and dry skin Neuro General: oriented to person, oriented to place and oriented to time Cranial nerves: Yes Equal, round and reactive pupils present Speech: No Abnormal speech present Gait exam (Neuro): Normal gait present Motor exam (neuro): no tremor noted Extrem Right upper extremity: full ROM Left upper extremity: full ROM Right lower extremity: full ROM; no edema Left lower extremity: full ROM; no edema Psych Mental Status: mental status grossly normal Speech and movement: Normal speech and movement present Affect: normal affect Attitude: cooperative Thought process: Normal thought process present Office Procedures Flu Questionnaire Does the patient have a severe egg allergy?: No Does the patient have severe life threatening allergies?: No Does the patient have a fever or illness today?: No Has the patient ever had Guillain-Ronan Syndrome?: No Has the patient ever had any past reaction to a flu shot?: No Immunizations Fluarix Triv [id number] (PF) 45 mcg (15 mcg x 3)/0.5 mL IM syringe Performing Provider: Jani Santizo PA-C Performing [facility] Administered by: RAMESH Busby on 01/29/24 15:45 Dose Route Admin Location Dispensed Lot Number Expiration Date NDC Mechanical Cad Drafter 0.5 mL IM Right Deltoid 0.5 mL [id number] 10/18/24 [id number] [employer] VIS Given Date VIS Provided VIS Publication Date 01/29/24 Single Vaccine 20 Eligibility Eligibility Date Funding Source Not [facility] Eligible 01/29/24 Private Coding Level of Care Code Est Pt Level 4 (37779) Diagnoses Mixed hyperlipidemia E78.2 Hyperlipidemia type: mixed hyperlipidemia MARY (generalized anxiety disorder) F41.1 MDD (major depressive disorder), recurrent episode, moderate F33.1 Lumbar disc disease with radiculopathy M51.16 Abdominal bloating R14.0 Schizo-affective schizophrenia F25.9 Additional Codes Vital Signs *Quality* - CPT code: 23441 - 4-10 Minutes ([id number]) Assessment & Plan Assessment & Plan (1) HLD (hyperlipidemia): Code(s): E78.5 - Hyperlipidemia, unspecified Category: Medical Qualifiers: Hyperlipidemia type: mixed hyperlipidemia Qualified Code(s): E78.2 - Mixed hyperlipidemia Plan: Advised patient get fasting labs done ROSITA. Most recent fasting lipid panel done in 2020 showing elevated total cholesterol. (2) MARY (generalized anxiety disorder): Code(s): F41.1 - Generalized anxiety disorder Category: Medical Plan: Patient's most recent mary score 0. He does follow a mental health therapist and a psychiatrist who manages his mental health medication. (3) MDD (major depressive disorder), recurrent episode, moderate: Code(s): F33.1 - Major depressive disorder, recurrent, moderate Category: Medical Plan: Patient does follow a mental health therapist and a psychiatrist whom manage his mental health medication. He feels he is stable from a mental health point of view. (4) Lumbar disc disease with radiculopathy: Code(s): M51.16 - Intervertebral disc disorders with radiculopathy, lumbar region Category: Medical Plan: Patient continues on meloxicam 15 mg on an as needed basis for his lower lower back pain. He reports he still has back pain though he is not interested in any further modalities or physical therapy at this time. (5) Abdominal bloating: Code(s): R14.0 - Abdominal distension (gaseous) Category: Medical Plan: Toribio reports he has been having some abdominal bloating though denies any constipation or diarrhea. Will supply patient with simethicone these before each meal to help reduce abdominal bloating. (6) Schizo-affective schizophrenia: Code(s): F25.9 - Schizoaffective disorder, unspecified Category: Medical Plan: Patient continues to see Psychiatry who manages his mental health medications. He feels his mental health has been stable. Orders: Orders Lipid Panel 01/29/24 E78.2 - Mixed hyperlipidemia Complete Blood Count no Diff 01/29/24 E78.2 - Mixed hyperlipidemia Prostate Specific Antigen Scr 01/29/24 E78.2 - Mixed hyperlipidemia, Z12.5 - Encounter for screening for malignant neoplasm of prostate Influenza [id number] Immunization 01/29/24 Z23 - Encounter for immunization Comprehensive [place]. Panel Fast 01/29/24 Z13.1 - Encounter for screening for diabetes mellitus Medications: New simethicone (Gas Relief (simethicone)) 80 mg PO TID PRN 90 tabs 3RF abdominal distention 30 days R14.0 - Abdominal distension (gaseous) Changed From multivitamin with folic acid 400 mcg (Daily-Samia (with folic acid)) 1 tab PO DAILY To multivitamin with folic acid 400 mcg (Daily-Samia (with folic acid)) 1 tab PO DAILY 90 tabs 1RF 90 days Refilled meloxicam 15 mg PO DAILY 30 tabs 6RF M54.5 - Low back pain
== END 2024-01-29 16:00 | disposition home or self-care (01) ==
PROVIDERS: PCP Physician Assistant; Visit Provider Physician Assistant
DX: E78.2 Mixed hyperlipidemia (principal); F33.1 Major depressive disorder, recurrent, moderate; F25.9 Schizoaffective disorder, unspecified; F41.1 Generalized anxiety disorder; M51.16 Intervertebral disc disorders with radiculopathy, lumbar region; R14.0 Abdominal distension (gaseous)

== ENCOUNTER → 2024-01-29 15:28 | Outpatient (BNVA) | payer OTHER, SELFPAY | PROVIDERS: PCP Physician Assistant; Visit Provider Physician Assistant | DX: Z23 Encounter for immunization (principal); E78.2 Mixed hyperlipidemia; F41.1 Generalized anxiety disorder; F33.1 Major depressive disorder, recurrent, moderate; M51.16 Intervertebral disc disorders with radiculopathy, lumbar region; R14.0 Abdominal distension (gaseous); F25.9 Schizoaffective disorder, unspecified | CPT/HCPCS: 90471; 90656; 99212 ==

== ENCOUNTER 2025-03-14 09:14 | Outpatient (AMB) | payer OTHER, SELFPAY ==
--- NOTE | 2025-03-14 09:55 | A.OFFPC_ITS ---
Vital Signs 03/14/25 09:57 Height 5 ft 11 in Weight 239 lb 8 oz BMI 33.4 BP 110/80 Blood Pressure Location Lt brachial Position Sitting Pulse 87 Pulse Source Pulse Oximeter Temp 97.1 F Temp Source Temporal Artery Scan Pulse Oximetry (%) 97 Oxygen Delivery Method Room Air Intake Visit Reasons: herniated disc/back pain Intake Note: Patient is here to follow up on Herniated disc/ back pain. Stenographic Court Reporter Required: No It Network Administrator: Not Required per policy Accompanied by: Self / Same As Patient Allergies No Known Allergies Allergy (Verified 03/14/25 10:10) Medication List - Last Reconciled 03/14/25 by Jani Santizo PA-C acetaminophen ER 650 mg PO Q12H 30 days aripiprazole 30 mg PO DAILY bisacodyl (Dulcolax (bisacodyl)) 20 mg (4 x 5 mg) PO ONCE 1 day bupropion HCl XL 150 mg PO DAILY gabapentin 600 mg PO DAILY 90 days meloxicam 15 mg PO DAILY multivitamin with folic acid 400 mcg (Daily-Samia (with folic acid)) 1 tab PO DAILY 90 days polyethylene glycol 3350 (Miralax) 238 grams PO ONCE PRN 1 day sertraline 200 mg PO DAILY simethicone (Gas Relief (simethicone)) 80 mg PO TID PRN 30 days Tobacco use date assessed: 03/14/25 Dental Screening Dental Screen Date: 03/14/25 Did you have a dental visit in the last 12 months?: Yes Did you have a dental problem in the last 6 months where you did not have access to dental care?: No Was dental information given to patient?: Patient has dentist HPI herniated disc/back pain HPI Details Toribio is a 54 yo M here today for a follow-up visit. Pateint has a pmhx significant for chronic low back pain, Depression, schizophrenia, Tobacco use, history of crack cocaine use. ? .. ? Schizophrenia ( paranoid):? Patient is seeing therapist and psychiatrist at [facility] , Taking Abilify and SSRI. Patient is going twice per month to [facility] mental health clinic. .. History of crack cocaine use: Has now been sober over last 3 months. Currently living in a sober living situation. ? .. ? Current smoker: Continues to struggle with quitting smoking, did quit for a short amount of time will getting sober from crack cocaine though as we picked up smoking cigarettes since being in a sober living situation. He? Has nicotin patches at home. .. Hyperlipidemia: Most recent lipid panel done in 2020 did show an elevated total cholesterol. He is willing to do another fasting lipid panel and consider cholesterol medication. ? .. ? Lower back pain: reports he does have lower back issues for many years. ? He reports he is still having lumbar back stiffness and pain which causes him to sleep a lot. ? 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 Most recent lumbar MRI showing L5-S1 disc degeneration. No central nervous system impingement. Has gotten 2 injections in his lumbar spine from [facility] with only temporary relief. ?Has done PT in the past which only helped temporarily though? had transportation issues to get to the appointments. --> The patient reports throbbing low ba ck pain for the past 6-8 months, which has been managed with meloxicam and gabapentin without significant relief. In September, the patient went to an urgent care and received a four-day course of prednisone, which resolved the pain for about a week. PLAN: Will try to set patient up with [facility] pain management for his chronic low back pain COUNT INCLUDES THE [facility] Medical History Schizo affective schizophrenia Back pain HLD (hyperlipidemia) Anxiety Depression Surgical History No pertinent past surgical history Family History Father Asthma Mother Chronic mental illness Stroke Diabetes Mental health disorder Maternal Grandfather Gastric cancer Social History Housing: House Alcohol intake: former Patient Tobacco Use Status: Current everyday Tobacco user Tobacco use type: Cigarette Cigarette Packs Per Day: 0.5 Cigarettes Per Day: 10 Years Smoked: 22 e-Cigarette/Vaping Use: Never Used Second Hand Smoke Exposure: Yes Substance Use Type: Marijuana service: No Current occupational status: disabled Cognitive needs: No Hearing needs: No Vision needs: No Questionnaire PHQ-9 Over the last 2 weeks, how often have you been bothered by any of the following problems? 1. Little interest or pleasure in doing things: several days 2. Feeling down, depressed, or hopeless: more than half the days 3. Trouble falling or staying asleep, or sleeping too much: several days 4. Feeling tired or having little energy: more than half the days 5. Poor appetite or overeating: several days 6. Feeling bad about yourself - or that you are a failure or have let yourself or your family down: more than half the days 7. Trouble concentrating on things, such as reading the newspaper or watching television: several days 8. Moving or speaking so slowly that other people could have noticed. Or the opposite - being so fidgety or restless that you have been moving around a lot more than usual: several days 9. Thoughts that you would be better off or of hurting yourself in some way: not at all Total score: 11 Depression Screening Interpretation: Positive Depression Screening Follow-up: Existing condition and In treatment Depression Screening Done: Yes 92633 - PHQ-9 Billing: Yes Source: Developed by Drs. Lloyd Al, Binta Webb, Myles Lee and colleagues, with an educational leigh ann from [employer]. Thrive Questionnaire Date Thrive assessed: 03/14/25 I am a: Patient What is your living situation today?: I have a place to live, but I am worried about losing it in the future Within the past 12 months, did the food you bought not last and you didn't have the money to get more?: Sometimes True Within the past 12 months, did you worry whether your food would run out before you got money to buy more?: Sometimes True Do you have trouble paying for medicines?: No Do you have trouble getting transportation to medical appointments?: No Do you have trouble paying your heating and electricity bill?: Yes Do you have trouble taking care of your child, family member or friend?: I choose not to answer this question Do you have trouble with day-to-day activities such as bathing, preparing meals, shopping, managing finances, etc.?: Yes Are you currently unemployed and looking for a job?: Yes Are you interested in more education?: No Please select the resources that you would like help with: Housing/[facility], Food, Transportation and Job search/training Currently or been in a relationship where the following occur: I choose not to answer THRIVE Score: 4 AUDIT C Alcohol Use Questionnaire (AUDIT-C) 1. How often do you have a drink containing alcohol?: Never Total Score: 0 MARY-7 AMB Questionnaire MARY-7 Date MARY - 7 assessed: 03/14/25 Feeling nervous, anxious, or on edge: 2 = More than half the days Not being able to stop or control worryin = More than half the days Worrying too much about different things: 1 = Several days Trouble relaxin = More than half the days Being so restless that it is hard to sit still: 1 = Several days Becoming easily annoyed or irritable: 1 = Several days Feeling afraid as if something awful might happen: 2 = More than half the days Total MARY-7 score (0-4 normal; 5-9 mild; 10-14 moderate; 15-21 severe): 11 Source: Developed by Drs. Lloyd Al, Binta Webb, Myles Lee and colleagues, with an educational leigh ann from [employer]. MARY-7 Assessment Billing MARY-7 Assessment Tool: MARY-7 Assessment 29163 Review of Systems Const Denies headache(s) Eyes Denies loss of vision ENT Denies vertigo, Denies dizziness, Denies headache(s) and Denies sore throat Card Denies chest pain, Denies leg edema and Denies lightheadedness Resp Denies cough, Denies hemoptysis and Denies wheezing GI Denies abdominal pain, Denies melena, Denies constipation, Denies diarrhea and Denies vomiting Denies dysuria, Denies urinary frequency and Denies urinary urgency Musc Reports back pain, Denies arthralgias, Denies joint swelling, Denies numbness and Denies tingling Neuro Denies Abnormal speech present, Denies behavioral changes, Denies vertigo, Denies dizziness, Denies headache(s), Denies loss of vision, Denies memory loss, Denies numbness and Denies tingling Psych Denies anxiety, Denies behavioral changes, Denies depression, Denies memory loss and Denies panic attacks Nawaf/Lymph Denies easy bleeding and Denies easy bruising Aller/Immun Denies wheezing Physical exam (Primary Care) Vital Signs: Last Vital Signs Temp 97.1 F 03/14/25 09:57 Pulse 87 03/14/25 09:57 BP 110/80 03/14/25 09:57 Pulse Ox 97 03/14/25 09:57 Oxygen Delivery Method Room Air 03/14/25 09:57 BMI result Body Mass Index 33.4 BMI Assessment/Plan discussion: High BMI High, discussed plan: lifestyle, weight reduction, dietary and physical activity Tobacco/Smoking Status: Tobacco use Status Tobacco use date assessed 03/14/25 03/14/25 10:04 Patient Tobacco Use Status Current everyday Tobacco 03/14/25 10:04 Tobacco use type Cigarette 03/14/25 10:04 e-Cigarette/Vaping Use Never Used 03/14/25 10:04 Are you ready to quit: No Tobacco cessation counseling provided: Yes Items discussed: Nicotine replacement Relapse Prevention: discussed the importance of a supportive environment, discussed negative mood or depression after quitting, weight gain after smoking is common and discussed dietary, exercise and/or lifestyle changes Number of minutes spent counselin CPT code: 12687 - 4-10 Minutes PHQ-9: PHQ-9 Score PHQ-9: Total score 11 03/14/25 10:04 Depression Screening Interpretation: Positive Depression Screening Follow-up: Existing condition and In treatment Thrive Assessment: Date of Thrive Assessment Date Thrive assessed 03/14/25 03/14/25 10:04 Currently or been in a relationship where the following occur: I choose not to answer Const General: healthy appearing, no acute distress, alert and awake Nutritional Appearance: well nourished Orientation/consciousness: oriented to person, oriented to place and oriented to time HENMT Ears: TM's normal bilaterally General nose exam: Normal nasal mucous membranes and turbinates present Eyes Conjunctivae: conjunctivae normal Sclerae: sclerae normal Pupils: Equal, round and reactive pupils present Neck Neck: Yes no lymphadenopathy and Yes no JVD Thyroid: Thyroid normal Carotids: no bruits Resp Effort & Inspection: normal respiratory effort and not tachypneic Auscultation: no crackles, no rales, no rhonchi and no wheezes Cardio Rate: regular rate Rhythm: regular rhythm Heart sounds: no murmurs and normal S1 and S2 GI Palpation (GI): Soft to palpation, nontender, no hepatomegaly and no splenomegaly Auscultation: normal bowel sounds Skin General skin exam: no rashes or lesions noted and dry skin Neuro General: oriented to person, oriented to place and oriented to time Cranial nerves: Yes Equal, round and reactive pupils present Speech: No Abnormal speech present Gait exam (Neuro): Normal gait present Motor exam (neuro): no tremor noted Extrem Right upper extremity: full ROM Left upper extremity: full ROM Right lower extremity: full ROM; no edema Left lower extremity: full ROM; no edema Psych Mental Status: mental status grossly normal Speech and movement: Normal speech and movement present Affect: normal affect Attitude: cooperative Thought process: Normal thought process present Coding Level of Care Code Est Pt Level 4 (59166) Diagnoses Lumbar disc disease with radiculopathy M51.16 Smoker F17.200 Schizo-affective schizophrenia F25.9 Mixed hyperlipidemia E78.2 Hyperlipidemia type: mixed hyperlipidemia History of crack cocaine use Z87.898 Class 1 obesity E66.811 Additional Codes PHQ-9 - 34724 - PHQ-9 Billing: Yes ([id number]) MARY-7 Assessment Billing - MARY-7 Assessment Tool: MARY-7 Assessment 13876 ([id number]) Vital Signs *Quality* - CPT code: 48080 - 4-10 Minutes ([id number]) Assessment & Plan Assessment & Plan (1) Lumbar disc disease with radiculopathy: Code(s): M51.16 - Intervertebral disc disorders with radiculopathy, lumbar region Category: Medical Plan: For the patient's chronic low back pain, a referral will be placed to the [facility] Pain Management clinic for further evaluation and potential interventions. For immediate, short-term relief, a prednisone 10 mg taper will be prescribed, starting with three tablets for two days, then tapering down. Additionally, baclofen 20 mg is prescribed to be taken as needed up to twice daily for muscle relaxation. (2) Smoker: Code(s): F17.200 - Nicotine dependence, unspecified, uncomplicated Category: Social Hx Plan: Patient does understand he needs to quit smoking, house found it very difficult to quit. Does have nicotine replacement available to him. (3) Schizo-affective schizophrenia: Code(s): F25.9 - Schizoaffective disorder, unspecified Category: Medical Plan: Continues to follow psychiatry who manages his mental health medications. (4) HLD (hyperlipidemia): Code(s): E78.5 - Hyperlipidemia, unspecified Category: Medical Qualifiers: Hyperlipidemia type: mixed hyperlipidemia Qualified Code(s): E78.2 - Mixed hyperlipidemia Plan: Patient has a history of elevated cholesterol. He is willing to go do fasting labs to valley his total cholesterol and LDL. Does have elevated CV risk due to continued continue smoking (5) History of crack cocaine use: Code(s): Z87.898 - Personal history of other specified conditions Category: Social Hx Plan: Continues to live in a sober living group home house. He has been sober from crack cocaine over the last 3 months. 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 (6) Class 1 obesity: Code(s): E66.811 - Obesity, class 1 Category: Medical Plan: Patient does understand his BMI is over 30 will work on being more physically active and adapting to better eating habits to reduce his weight Orders: Orders Comprehensive [place]. Panel Fast Today E78.2 - Mixed hyperlipidemia Complete Blood Count no Diff Today E78.2 - Mixed hyperlipidemia Lipid Panel Today E78.2 - Mixed hyperlipidemia Prostate Specific Antigen Scr Today E78.2 - Mixed hyperlipidemia, Z12.5 - Encounter for screening for malignant neoplasm of prostate Referrals Pain Management Referral M51.16 - Intervertebral disc disorders with radiculopathy, lumbar region Medications: New prednisone see taper instructions 10 mg PO DIRECTED 12 tabs 0RF 6 days M51.16 - Intervertebral disc disorders with radiculopathy, lumbar region baclofen 20 mg PO BID 30 tabs 1RF 15 days M51.16 - Intervertebral disc disorders with radiculopathy, lumbar region Refilled meloxicam 15 mg PO DAILY 30 tabs 3RF M54.5 - Low back pain
[2025-03-14 09:57] VITALS: BP 110/80; PULSE 87; TEMP 36.2; O2SAT 97; BMI 33.4
--- OUTSIDE RECORDS SUMMARY | 2025-03-14 10:19 | XMS_ITS | Patient Health Record ---
Author Organization [facility] Address [address] [place] [address] Care Team Providers Care Medicare Biller Name Role Phone [facility], [facility] Clinic Primary Car e Provider [phone] Ethel Benitez Unavailable [phone] Reason For Referral No Information Encounters Encounter Location Date Provider Diagnosis [facility] [address] [place] [id number] 02/28/2025 Ethel Benitez Plan Of Treatment Next Appt Details Provider Name:Ethel Schwab, 03/15/2025 01:30:00 PM, [facility], [address] [place] [address], [phone], Insurance Providers Payer Name Payer Address Payer Phone Subscriber Number Group Number Insured Name Patient Relationship to Insured Coverage Start Date Coverage End Date Insurance - None Need to apply for insurance [id number] [place] [id number] Rosalino Abeip Self - patient is the insured
== END 2025-03-14 10:28 | disposition home or self-care (01) ==
LOC: HO.HMCH 09:15
PROVIDERS: PCP Physician Assistant; Visit Provider Physician Assistant
DX: M51.16 Intervertebral disc disorders with radiculopathy, lumbar region (principal); F17.200 Nicotine dependence, unspecified, uncomplicated; F25.9 Schizoaffective disorder, unspecified; E78.2 Mixed hyperlipidemia; Z87.898 Personal history of other specified conditions; E66.811 Obesity, class 1

== ENCOUNTER → 2025-03-14 09:14 | Outpatient (BNVA) | payer OTHER, SELFPAY | PROVIDERS: PCP Physician Assistant; Visit Provider Physician Assistant | DX: M51.16 Intervertebral disc disorders with radiculopathy, lumbar region (principal); F17.200 Nicotine dependence, unspecified, uncomplicated; F25.9 Schizoaffective disorder, unspecified; E78.2 Mixed hyperlipidemia; E66.811 Obesity, class 1; Z87.898 Personal history of other specified conditions; Z13.31 Encounter for screening for depression; Z13.39 Encounter for screening examination for other mental health and behavioral disorders; Z79.899 Other long term (current) drug therapy | CPT/HCPCS: 96127; 99212 ==

== ENCOUNTER 2025-03-18 08:38 | Outpatient (REF) | payer OTHER, SELFPAY ==
--- OUTSIDE RECORDS SUMMARY | 2025-03-15 06:00 | XMS_ITS ---
Author Organization [facility] Address [address] [place] [address] Care Team Providers Care Cit[employer] Administrator Name Role Phone [facility], [facility] Clinic Primary Car e Provider [phone] Ethle Benitez Unavailable REASON FOR VISIT ISP Encounters Encounter Location Date Provider Diagnosis [facility] [address] [place] [id number] 03/15/2025 Ethel Benitez Plan Of Treatment No Information Progress Notes * Jean Pierre THACKERDOB:[birth year] (54 yo M)Acc No.[id number]:03/15/2025 Substance Abuse Intake Patient: Jean Pierre SOLORZANO Provider: Demetrius Benitez :1970 A ge:54 Y S ex:Male Date:03/15/2025 Address:[address] [place], [place] [id number] Pcp:[facility] Subjective: * Chief Complaints: * 1 . ISP. * Medical History: Objective: Assessment: Plan: * Treatment: * Images: Billing Information: Care Plan Details* * Electronic signature of Sajan Benitez on 03/18/2025 at 08:41 AM EST Sign off status: Pending * Provider: Demetrius Benitez Date: 05/15/2024 Generated for Maia kelly/Ortiz/José Miguel on: 05/18/2024 08:41 AM EST
--- OUTSIDE RECORDS SUMMARY | 2025-03-18 08:42 | XMS_ITS | Patient Health Record ---
Author Organization [facility] Address [address] [place] [address] Care Team Providers Care Clinical Social Worker Name Role Phone [facility], [facility] Clinic Primary Car e Provider [phone] Ethel Benitez Unavailable Reason For Referral No Information Encounters Encounter Location Date Provider Diagnosis [facility] [address] [place] [id number] 02/28/2025 Ethel Benitez [facility] [id number] 03/15/2025 Ethel Benitez Plan Of Treatment No Information Insurance Providers Payer Name Payer Address Payer Phone Subscriber Number Group Number Insured Name Patient Relationship to Insured Coverage Start Date Coverage End Date Insurance - None Need to apply for insurance [id number] [place] [id number] Jean Pierre Jerry Self - patient is the insured
[2025-03-18 09:25] LABS: Hematocrit 43.7 % (42.0-52.0); Hemoglobin 14.6 g/dl (14.0-18.0); Mean Corpuscular HGB Conc 33.4 g/dl (31.0-36.0); Mean Corpuscular Hemoglobin 29.4 pg (27.0-33.0); Mean Corpuscular Volume 88.1 fL (80.0-98.0); NRBC Abs Auto 0.000 X10*3/uL (0.0-0.012); NRBC Pct Auto 0.0 /100WBC (0.0-0.2); Platelet Count 360 X10*3/uL (160-400); Red Blood Count 4.96 X10*6/uL (4.60-5.80); White Blood Count 11.2 X10*3/uL (4.8-10.8)
[2025-03-18 09:52] LABS: Alanine Aminotransferase 38 U/L (0-40); Albumin Level 4.5 g/dL (3.5-5.0); Alkaline Phosphatase 63 U/L (39-117); Anion Gap 11 (12-20); Aspartate Amino Transferase 28 U/L (5-37); Blood Urea Nitrogen 17 mg/dL (9-16); Calcium 9.1 mg/dL (8.4-10.2); Carbon Dioxide 29 mmol/L (22-29); Chloride 108 mmol/L (96-108); Cholesterol 197 mg/dL (<200); Estimated Glomerular Filt Rate > 60; HDL Cholesterol 53 mg/dL (>40); Potassium 4.4 mmol/L (3.3-5.1); Sodium 144 mmol/L (135-145); Total Protein 7.3 g/dL (6.5-8.0); Triglycerides 160 mg/dL (<150)
== END 2025-03-18 08:39 | disposition home or self-care (01) ==
LOC: HO.LAB 08:38
PROVIDERS: Visit Provider Physician Assistant
DX: Z12.5 Encounter for screening for malignant neoplasm of prostate (principal); E78.2 Mixed hyperlipidemia
CPT/HCPCS: 36415; 80053; 80061; 84153; 85027

== ENCOUNTER 2025-03-29 15:29 | Outpatient (AMB) | payer OTHER, SELFPAY ==
--- NOTE | 2025-03-29 15:57 | A.OFFPC_ITS ---
Vital Signs 03/29/25 15:58 Height 5 ft 11 in Weight 245 lb 6 oz BMI 34.2 BP 150/74 H Blood Pressure Location Lt brachial Position Sitting Pulse 85 Pulse Source Pulse Oximeter Temp 97.3 F Temp Source Temporal Artery Scan Pulse Oximetry (%) 96 Oxygen Delivery Method Room Air Intake Visit Reasons: pe Intake Note: Patient is here today for a physical. Senior Mortgage Underwriter Required: No High School Band Director: Not Required per policy Accompanied by: Self / Same As Patient Allergies No Known Allergies Allergy (Verified 03/29/25 16:25) Tobacco use date assessed: 03/29/25 Dental Screening Dental Screen Date: 03/14/25 HPI pe HPI Details Toribio is a 54 yo M here today for a routine annual physical. Pateint has a pmhx significant for chronic low back pain, Depression, schizophrenia, Tobacco use, history of crack cocaine use. ? .. ? Schizophrenia ( paranoid):? Patient is seeing therapist and psychiatrist at [facility] , Taking Abilify and SSRI. Patient is going twice per month to [facility] mental health clinic. .. History of crack cocaine use/alcohol use disorder: Has now been sober over last 3 months. Currently living in a sober living situation. ? .. ? Former smoker: Patient reports he quit smoking over the last 2 weeks. Have noted weight gain since last office visit. .. Leukocytosis: Noted a slight leukocytosis likely due to recent prednisone use for his back and being a smoker. .. Hyperlipidemia: Most recent lipid panel showing much improved total cholesterol, triglycerides and LDL.. He is willing to do another fasting lipid panel and consider cholesterol medication. ? .. ? Lower back pain: reports he does have lower back issues for many years. ? He reports he is still having lumbar back stiffness and pain which causes him to sleep a lot. ? 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 Most recent lumbar MRI showing L5-S1 disc degeneration. No central nervous system impingement. Has gotten 2 injections in his lumbar spine from [facility] with only temporary relief. ?Has done PT in the past which only helped temporarily though? had transportation issues to get to the appointments. --> The patient reports throbbing low ba ck pain for the past 6-8 months, which has been managed with meloxicam and gabapentin without significant relief. In September, the patient went to an urgent care and received a four-day course of prednisone, which resolved the pain for about a week. Colon cancer screening: Needs colonoscopy-he reports he would like to get a bit more stable from his sobriety before he gets a colonoscopy Vaccines: Up-to-date with pneumonia vaccine, COVID vaccine, flu vaccine and tetanus vaccine. Considering shingles PFSH Medical History Schizo affective schizophrenia Back pain HLD (hyperlipidemia) Anxiety Depression Surgical History No pertinent past surgical history Family History Father Asthma Mother Chronic mental illness Stroke Diabetes Mental health disorder Maternal Grandfather Gastric cancer Social History Housing: House Alcohol intake: former Patient Tobacco Use Status: Former Tobacco user Tobacco use type: Cigarette Cigarette Packs Per Day: 0.5 Cigarettes Per Day: 10 Years Smoked: 22 e-Cigarette/Vaping Use: Currently Using Second Hand Smoke Exposure: Yes Substance Use Type: Marijuana service: No Current occupational status: disabled Cognitive needs: No Hearing needs: No Vision needs: No Questionnaire Thrive Questionnaire Date Thrive assessed: 03/14/25 I am a: Patient What is your living situation today?: I have a place to live, but I am worried about losing it in the future Within the past 12 months, did the food you bought not last and you didn't have the money to get more?: Sometimes True Within the past 12 months, did you worry whether your food would run out before you got money to buy more?: Sometimes True Do you have trouble paying for medicines?: No Do you have trouble getting transportation to medical appointments?: No Do you have trouble paying your heating and electricity bill?: Yes Do you have trouble taking care of your child, family member or friend?: I choose not to answer this question Do you have trouble with day-to-day activities such as bathing, preparing meals, shopping, managing finances, etc.?: Yes Are you currently unemployed and looking for a job?: Yes Are you interested in more education?: No Currently or been in a relationship where the following occur: I choose not to answer THRIVE Score: 4 MARY-7 AMB Questionnaire MARY-7 Date MARY - 7 assessed: 03/14/25 Source: Developed by Drs. Lloyd Al, Binta Webb, Myles Lee and colleagues, with an educational leigh ann from [employer] Review of Systems Const Denies body aches, Denies chills, Denies excessive sweating, Denies fatigue, Denies fever(s) and Denies headache(s) Eyes Denies blurry vision ENT Denies dysphagia, Denies vertigo, Denies dizziness, Denies headache(s), Denies hearing loss and Denies tinnitus Card Denies chest pain, Denies chest pain with activity, Denies syncope, Denies irregular heart rhythm and Denies dyspnea Resp Denies chest congestion, Denies cough, Denies hemoptysis, Denies dyspnea and Denies wheezing GI Denies abdominal pain, Denies melena, Denies hematochezia, Denies coffee ground emesis, Denies dysphagia, Denies diarrhea, Denies nausea and Denies vomiting Denies difficulty urinating, Denies dysuria, Denies urinary frequency, Denies urinary hesitancy and Denies urinary urgency Musc Reports back pain, Denies arthralgias, Denies limited range of motion, Denies muscle cramps and Denies muscle weakness Skin/Breast Denies rash and Denies skin ulcer Neuro Denies Abnormal speech present, Denies confusion, Denies vertigo, Denies dizziness, Denies syncope, Denies headache(s), Denies memory loss and Denies seizure-like activity Psych Denies anxiety, Denies confusion, Denies depression, Denies memory loss, Denies panic attacks and Denies paranoia Endo Denies excessive sweating, Denies fatigue, Denies flushing, Denies polydipsia and Denies polyuria Aller/Immun Denies wheezing Physical exam (Primary Care) Vital Signs: Last Vital Signs Temp 97.3 F 03/29/25 15:58 Pulse 85 03/29/25 15:58 BP 150/74 H 03/29/25 15:58 Pulse Ox 96 03/29/25 15:58 Oxygen Delivery Method Room Air 03/29/25 15:58 BMI result Body Mass Index 34.2 BMI Assessment/Plan discussion: High BMI High, discussed plan: lifestyle, weight reduction, dietary and physical activity Tobacco/Smoking Status: Tobacco use Status Tobacco use date assessed 03/29/25 03/29/25 15:58 Patient Tobacco Use Status Former Tobacco user 03/29/25 16:05 Tobacco use type Cigarette 03/29/25 16:05 e-Cigarette/Vaping Use Currently Using 03/29/25 16:05 Thrive Assessment: Date of Thrive Assessment Date Thrive assessed 03/14/25 03/29/25 15:58 Currently or been in a relationship where the following occur: I choose not to answer Const Other: Morbidly obese General: cooperative, comfortable, no acute distress, alert and awake; No confusion Orientation/consciousness: oriented to person, oriented to place, patient oriented x3 and No confusion HENMT Head: Yes normocephalic Ears: external ears normal and TM's normal bilaterally Face and sinus: No sinus tenderness Mouth: Normal oral and palatal mucosa present and tongue normal Teeth and gingiva: dentition normal and gingiva normal Throat: Yes posterior oropharynx normal, Yes tonsils normal and Yes uvula midline Eyes Conjunctivae: conjunctivae normal Sclerae: sclerae normal Pupils: Equal, round and reactive pupils present EOM: EOMs intact bilaterally Direct Ophthalmoscopy: No no photophobia Neck Neck: Yes no lymphadenopathy, No tender and Yes no JVD Thyroid: Thyroid normal Carotids: no bruits Chest Chest palpation & inspection: no tenderness Resp Effort & Inspection: normal respiratory effort, no audible wheezes, not labored and no stridor Auscultation: no crackles, no rales, no rhonchi and no wheezes Cardio Jugular venous distension: no JVD Rate: regular rate, not bradycardic and not tachycardic Rhythm: regular rhythm Bruits: no carotid bruits Peripheral pulses: Peripheral pulses 2+ throughout GI Inspection: Yes normal to inspection, No abdominal wall ecchymosis and No visible herniation Palpation (GI): Soft to palpation, nontender, no guarding, not rigid and No hepatosplenomegaly present Auscultation: normoactive bowel sounds General: Yes no CVA tenderness Back/Spine/Pelvis Back: no CVA tenderness and No back tenderness Cervical Spine: cervical ROM normal Thoracic/Lumbar Spine: thoracic and lumbar spine normal to inspection, straight leg raise negative bilaterally, No thoraco-lumbar ROM limited and No lumbar spinal tenderness Skin Lesions: no lesions Rashes: no rashes Wounds: no wounds Neuro General: oriented to person, oriented to place, patient oriented x3, CN's II-XI intact bilaterally and No confusion Cranial nerves: Yes Equal, round and reactive pupils present and Yes Normal accommodation reflex present Cognition (Neuro): normal cognition Speech: No Abnormal speech present Gait exam (Neuro): Normal gait present Motor exam (neuro): 5/5 motor strength present throughout Extrem Right upper extremity: full ROM; no cyanosis Left upper extremity: full ROM; no cyanosis Right lower extremity: no edema Left lower extremity: no edema Psych Appearance: grossly normal Mental Status: mental status grossly normal Affect: normal affect Attitude: cooperative Thought process: Normal thought process present Coding Level of Care Code Est Pt Prev Care 40-64y(03945) Diagnoses Annual physical exam Z00.00 Elevated PSA R97.20 MDD (major depressive disorder), recurrent episode, moderate F33.1 Acute bronchitis due to other specified organisms J20.8 Bronchitis organism: other organism Mixed hyperlipidemia E78.2 Hyperlipidemia type: mixed hyperlipidemia Colon cancer screening Z12.11 Impaired glucose metabolism R73.09 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 Does report urinating much better since he has been sober from drugs and alcohol.. Will continue to follow. (3) MDD (major depressive disorder), recurrent episode, moderate: Code(s): F33.1 - Major depressive disorder, recurrent, moderate Category: Medical Plan: Patient does follow a mental health therapist and a psychiatrist whom manage his mental health medications. He feels very stable for her mental health point of view (4) Acute bronchitis: Code(s): J20.9 - Acute bronchitis, unspecified Category: Medical Qualifiers: Bronchitis organism: other organism Qualified Code(s): J20.8 - Acute bronchitis due to other specified organisms Plan: Over last 2 weeks having an upper respiratory cough and congestion also in the setting of quitting smoking cigarettes. Will supply patient with an antibiotic for possible bronchitis/ pneumonia. (5) HLD (hyperlipidemia): Code(s): E78.5 - Hyperlipidemia, unspecified Category: Medical Qualifiers: Hyperlipidemia type: mixed hyperlipidemia Qualified Code(s): E78.2 - Mixed hyperlipidemia Plan: Patient's most recent lipid panel showing better control of his total cholesterol and LDL. Will continue on lifestyle and dietary modification. Goal LDL is to remain below 130 (6) Colon cancer screening: Comment: [facility] referred index screening colonoscopy no GI complaints, no known family history of GI cancer Discussed procedure, rare risks, need for escorted due to anesthesia Code(s): Z12.11 - Encounter for screening for malignant neoplasm of colon Category: Medical Plan: Patient has not had any colon cancer screening. Offered Cologuard though he de clines. He is interested in a colonoscopy next year when he has more sobriety under his belt. (7) Impaired glucose metabolism: Code(s): R73.09 - Other abnormal glucose Category: Medical Plan: most recent labs showing a slightly elevated fasting blood sugar at 113. At next lab draw will assess an A1c to eval for diabetes. He will continue working on lifestyle and dietary modifications (8) Recovering alcoholic in remission: Code(s): F10.21 - Alcohol dependence, in remission Category: Medical Plan: As above patient is recovering alcoholic and now is 3 months sober. Currently living in his sober living situation. (9) Lumbar disc disease with radiculopathy: Code(s): M51.16 - Intervertebral disc disorders with radiculopathy, lumbar region Category: Medical Plan: Patient continues to have low back pain and difficulty with standing or bending at the waist. We have referred him to pain management he is awaiting assessment. He reports the prednisone did help reduce his pain a bit and would like another trial of prednisone taper. He continues on meloxicam and a muscle relaxer for his pain as well.. (10) Schizo-affective schizophrenia: Code(s): F25.9 - Schizoaffective disorder, unspecified Category: Medical Plan: Continues to follow psychiatry who manages his mental health medications. (11) Class 1 obesity: Code(s): E66.811 - Obesity, class 1 Category: Medical Plan: Unfortunately gained weight since last office visit. Patient does understand his BMI is over 30 will work on being more physically active and adapting to better eating habits to reduce his weight Orders: Orders Hemoglobin A1c 03/29/25 R73.09 - Other abnormal glucose Complete Blood Count no Diff 03/29/25 E78.2 - Mixed hyperlipidemia Lipid Panel 03/29/25 E78.2 - Mixed hyperlipidemia Comprehensive [place]. Panel Fast 03/29/25 E78.2 - Mixed hyperlipidemia Prostate Specific Antigen Scr 03/29/25 R97.20 - Elevated prostate specific antigen [PSA], Z12.5 - Encounter for screening for malignant neoplasm of prostate Medications: New azithromycin For 250 mg dose pack: take 500 mg today (day 1), then 250 mg for 4 days (days 2-5) PO 6 tabs 0RF J20.9 - Acute bronchitis, unspecified prednisone Take 3 tablets x3 days, 2 tablets x3 days, 1 tablet x3 days 10 mg PO DIRECTED 18 tabs 0RF 9 days M51.16 - Intervertebral disc disorders with radiculopathy, lumbar region
[2025-03-29 15:58] VITALS: BP 150/74; PULSE 85; TEMP 36.3; O2SAT 96; BMI 34.2
== END 2025-03-29 16:38 | disposition home or self-care (01) ==
LOC: HO.HMCH 15:30
PROVIDERS: PCP Physician Assistant; Visit Provider Physician Assistant
DX: Z00.00 Encounter for general adult medical examination without abnormal findings (principal); F33.1 Major depressive disorder, recurrent, moderate; F10.21 Alcohol dependence, in remission; F25.9 Schizoaffective disorder, unspecified; R97.20 Elevated prostate specific antigen [PSA]; J20.8 Acute bronchitis due to other specified organisms; E78.2 Mixed hyperlipidemia; Z12.11 Encounter for screening for malignant neoplasm of colon; R73.09 Other abnormal glucose; M51.16 Intervertebral disc disorders with radiculopathy, lumbar region; E66.811 Obesity, class 1

== ENCOUNTER → 2025-03-29 15:29 | Outpatient (BNVA) | payer OTHER, SELFPAY | PROVIDERS: PCP Physician Assistant; Visit Provider Physician Assistant | DX: Z00.00 Encounter for general adult medical examination without abnormal findings (principal); R97.20 Elevated prostate specific antigen [PSA]; F33.1 Major depressive disorder, recurrent, moderate; J20.8 Acute bronchitis due to other specified organisms; E78.2 Mixed hyperlipidemia; Z12.11 Encounter for screening for malignant neoplasm of colon; R73.09 Other abnormal glucose; M51.16 Intervertebral disc disorders with radiculopathy, lumbar region; F25.9 Schizoaffective disorder, unspecified; E66.811 Obesity, class 1; Z87.891 Personal history of nicotine dependence | CPT/HCPCS: 99396 ==